=== PATIENT | male | born 1965 | race Caucasian/White ===

== ENCOUNTER 2019-02-06 07:40 | Outpatient (CLI) | payer OTHER ==
--- NOTE | 2019-02-06 09:59 | CT ---
CT CORONARY ARTERIES CALCIUM SCORIN02/06/19 HISTORY: Hypertension, hyperlipidemia. FINDINGS: The total coronary artery calcium score using the ADA-130 method measures 139. LM: 0 ICA: 33 LAD: 106 LCX: 0 Total: 139 There are calcified right hilar lymph nodes. No aneurysmal dilatation of the thoracic aorta is seen. No pleural or pericardial effusions are identified. The visualized lung lau are unremarkable. Ther e are degenerative changes in the spine. IMPRESSION: Total coronary artery calcium score is 139. POS: [facility]
== END 2019-02-06 07:41 | disposition home or self-care (01) ==
LOC: BICCT 07:40
PROVIDERS: ATTEND Family Medicine
DX: I10 Essential (primary) hypertension (principal); E78.5 Hyperlipidemia, unspecified
CPT/HCPCS: 75571